=== PATIENT | female | born 1995 | race Caucasian/White ===

== ENCOUNTER 2018-10-05 19:02 | Emergency (ER) | payer MEDICAID ==
[~2018-10-05] VITALS: Ht 160 cm; Wt 67.3 kg
[2018-10-05 19:08] VITALS: Ht 160 cm; Wt 67.3 kg
[2018-10-05] MEDS ORDERED: PRENAVITE1 TAB (19:09)
[2018-10-05 20:19] LABS: APPEARANCE HAZY (CLEAR); COLOR YELLOW (YELLOW); NITRITE POSITIVE (NEGATIVE); SPECIFIC GRAVITY 1.025 (1.005-1.020)
[2018-10-05 20:20] LABS: BACTERIA MANY /hpf (NONE SEEN); BILIRUBIN NEGATIVE (NEGATIVE); CALCIUM OXALATE CRYSTALS 0-5 /hpf (NONE SEEN); GLUCOSE NEGATIVE (NEGATIVE); KETONE NEGATIVE (NEGATIVE); PROTEIN TRACE mg/dL (NEGATIVE); RED CELLS - URINE NONE SEEN /hpf (0-5); UROBILINOGEN NORMAL (NORMAL); WHITE CELLS - URINE >50 /hpf (0-5)
[2018-10-05] MEDS ORDERED: MACROBID100 MG PO (20:32)
[2018-10-05 20:48] VITALS: BP 115/71
== END 2018-10-05 20:49 | disposition home or self-care (01) ==
LOC: D.ER 19:02
PROVIDERS: Family Medicine
DX: O23.41 Unspecified infection of urinary tract in pregnancy, first trimester (principal); Z3A.13 13 weeks gestation of pregnancy; R10.30 Lower abdominal pain, unspecified

== ENCOUNTER → 2018-10-28 10:40 | Outpatient (CLI) | payer MEDICAID ==
[2018-10-05 19:08] VITALS: BMI 26.2
[~2018-10-28 10:40] MED LIST: MACROBID100 MG PO; PRENAVITE1 TAB
== END | disposition home or self-care (01) ==
LOC: D.US 10:40
DX: O26.842 Uterine size-date discrepancy, second trimester (principal); Z3A.15 15 weeks gestation of pregnancy

== ENCOUNTER → 2019-01-14 10:49 | Outpatient (CLI) | payer MEDICAID ==
[2018-10-05 19:08] VITALS: BMI 26.2
== END | disposition home or self-care (01) ==
LOC: D.US 10:49
PROVIDERS: ATTEND Obstetrics & Gynecology
DX: O36.63X3 Maternal care for excessive fetal growth, third trimester, fetus 3 (principal)

== ENCOUNTER → 2019-02-02 19:37 | Outpatient (CLI) | payer MEDICAID ==
[2018-10-05 19:08] VITALS: BMI 26.2
== END | disposition home or self-care (01) ==
LOC: D.LDO 19:37
PROVIDERS: ATTEND Obstetrics & Gynecology
DX: O26.899 Other specified pregnancy related conditions, unspecified trimester (principal); Z3A.00 Weeks of gestation of pregnancy not specified

== ENCOUNTER → 2019-03-11 15:11 | Outpatient (CLI) | payer MEDICAID ==
[~2019-03-11 15:11] MED LIST changes: +IBUPROFEN800 MG PO; +PERCOCET 7.5/321 TAB PO
== END | disposition home or self-care (01) ==
LOC: D.LDO 15:11
DX: O24.419 Gestational diabetes mellitus in pregnancy, unspecified control (principal); Z3A.36 36 weeks gestation of pregnancy

== ENCOUNTER → 2019-03-17 18:00 | Outpatient (CLI) | payer MEDICAID ==
[2018-10-05 19:08] VITALS: BMI 26.2
[~2019-03-17 18:00] MED LIST changes: -IBUPROFEN800 MG PO; -PERCOCET 7.5/321 TAB PO
[2019-03-17 18:36] LABS: APPEARANCE CLEAR (CLEAR); BILIRUBIN NEGATIVE (NEGATIVE); COLOR STRAW (YELLOW); GLUCOSE NEGATIVE (NEGATIVE); KETONE NEGATIVE (NEGATIVE); NITRITE POSITIVE (NEGATIVE); PROTEIN TRACE mg/dL (NEGATIVE); UROBILINOGEN NORMAL (NORMAL)
[2019-03-17 18:38] LABS: BACTERIA FEW /hpf (NONE SEEN); EPITHELIAL CELLS 0-5 /hpf (0-5); RED CELLS - URINE OCC /hpf (0-5); WHITE CELLS - URINE 0-5 /hpf (0-5)
== END | disposition home or self-care (01) ==
LOC: D.LDO 18:00
PROVIDERS: ATTEND Obstetrics & Gynecology
DX: O26.899 Other specified pregnancy related conditions, unspecified trimester (principal); Z3A.00 Weeks of gestation of pregnancy not specified

== ENCOUNTER → 2019-03-18 13:23 | Outpatient (CLI) | payer MEDICAID ==
[2018-10-05 19:08] VITALS: BMI 26.2
== END | disposition home or self-care (01) ==
LOC: D.LDO 13:23
PROVIDERS: ATTEND Obstetrics & Gynecology
DX: O24.419 Gestational diabetes mellitus in pregnancy, unspecified control (principal); Z3A.37 37 weeks gestation of pregnancy

== ENCOUNTER → 2019-03-25 15:25 | Outpatient (CLI) | payer MEDICAID ==
[2018-10-05 19:08] VITALS: BMI 26.2
[~2019-03-25 15:25] MED LIST changes: +IBUPROFEN800 MG PO; +PERCOCET 7.5/321 TAB PO
[2019-03-26 00:42] VITALS: BMI 31.9
== END | disposition home or self-care (01) ==
LOC: D.LDO 15:25
PROVIDERS: ATTEND Obstetrics & Gynecology
DX: O26.893 Other specified pregnancy related conditions, third trimester (principal); Z3A.38 38 weeks gestation of pregnancy

== ENCOUNTER 2019-03-26 00:14 | Inpatient (IN) | payer MEDICAID ==
[2019-03-26] VITALS (8 sets, daily range): BP systolic 120–131; BP diastolic 70–88; Ht 160 cm; Wt 81.6 kg
[~2019-03-26] VITALS: Ht 160 cm; Wt 81.6 kg
[~2019-03-26 00:14] MED LIST changes: -IBUPROFEN800 MG PO; -PERCOCET 7.5/321 TAB PO
[2019-03-26 01:02] LABS: HEMATOCRIT 32.5 % (36.0-48.0); MCH 30.1 pg (26.0-34.0); MCHC 33.8 g/dL (31.0-37.0); MCV 88.8 fL (80.0-100.0); MEAN PLATELET VOLUME 11.4 fL (7.4-10.4); RBC 3.66 10x6/uL (4.00-5.40); RDW 13.8 % (11.5-14.5); WBC 10.4 10x3/uL (4.8-10.8)
[2019-03-26 01:14] LABS: APPEARANCE CLEAR (CLEAR); BILIRUBIN NEGATIVE (NEGATIVE); COLOR STRAW (YELLOW); GLUCOSE 50 mg/dL (NEGATIVE); KETONE NEGATIVE (NEGATIVE); NITRITE NEGATIVE (NEGATIVE); PROTEIN NEGATIVE (NEGATIVE); SPECIFIC GRAVITY 1.005 (1.005-1.020); UROBILINOGEN NORMAL (NORMAL)
--- NOTE | 2019-03-26 11:34 | NUR ---
FUNDUS IS MIDLINE, FIRM AT THE UMBILICUS. CHINEDU PAD IN PLACE. NO CLOTS NOTED. DISCHARGE IS MINIMAL. WILL CONTINUE TO MONITOR.
--- NOTE | 2019-03-26 12:00 | NUR ---
REC'D PT BACK FROM [facility] . PT AA&O X 4. CURRENTLY DENIES PAIN OF ANY KIND. PT UNABLE TO MOVE LOWER EXTREMITIES AT THIS TIME. BREATHSOUNDS CL/=,BOWEL SOUNDS PRESENT X 4. FUNDUS FIRM,U/2, SCANT LOCHIA NOTED W/NO BLOOD CLOTS EXPRESSED W/MASSAGE. CLEAN PERIPAD PLACED. LAU CATH AT BEDISIDE DRAINING VIA GRAVITY. APPROX 200ML NOTED IN BAG.SCD WRAPS ON BILATERALLY. COLLECTED TO PUMP. PUMP TURNED ON AND FUNCTIONING. WRAPS REMOVED FOR LEG INSPECTION. WNL. NO EDEMA NOTED. POST OP VITALS BEGUN AT THIS TIME. PIV TO RT WRIST W/NS W/20 UNITS PITOCIN ALREADY CONNECTED. APPROX 500ML REMAINING. LINE PLACED ON PUMP TO INFUSE AT 125ML/HR. REPORT RECEIVED PT RECEIVED 2 LR IN SURGERY, BUT THIS IS THE FIRST BAG OF PITOCIN. CONTINUED POC DISCUSSED W/PT. PT VEBALZIES UNDERSTANDING AND AGREEABLE. ICE CHIPS AT PT'S SIDE, SHE HAS BEEN TOLERATING ICE CHIPS WELL. BED LOW, SIDE RAILS UP X 2. CALL LIGHT AT PT'S SIDE. FAMILY AT BEDSIDE.
--- NOTE | 2019-03-26 12:15 | NUR ---
TO BEDSIDE FOR FUNDAL CHECKS. PT AA&O X 4. STILL DENIES PAIN AT PRESENT. FUNDUS FIRM,U/2, MIDLINE. SCANT TO SMALL LOCHIA NOTED. NO PERIPAD CHANGE NEEDED. VITALS WNL. MULTIPLE FAMILY AT BEDSDIDE. PT DENIES NEEDS.
--- NOTE | 2019-03-26 12:30 | NUR ---
THIS RN TO BEDSIDE TO ADMINISTER TORADOL 30MG SIVP. PT AA&O X 4. REPORTS FEELS "STINGING" PAIN ON HER ABD. PT RATED USING FACE SCALE TO BE 2/10. MED TEACHING PROVIDED. FUNDUS FIRM,U/2, SCANT TO SMALL LOCHIA NOTED. NO CLOTS EXPRESSED W/MASSAGE. NO PERIPAD CHANGE. VITAL SIGNS OBTAINED. WNL. SEE FLOWSHEET. FAMILY REMAIN AT BEDSIDE. ADDITIONAL ICE CHIPS SERVED. BED LOW, SIDE RAILS UP X 2. CALL LIGHT AT PT'S SIDE.
--- NOTE | 2019-03-26 12:45 | NUR ---
fundus firm,u/2 and midline. small lochia noted. no blood clots expressed w/massage. peripad changed. pericare done. pt reports le's are still weak. denies needs at this time. family at bedside.
--- NOTE | 2019-03-26 13:00 | NUR ---
FUNDUS FIRM,U/2, SCANT TO SMALL LOCHIA NOTED. NO CLOTS EXPRESSED W/MASSAGE. PT REPORTS SHE IS STARTING TO HAVE FEELING RETURN AND SHE HAS SOME INCREASED PAIN. PAIN MEDICATION OFFERED FOR A PAIN SCORE 4/10. PT ACCEPTS. APPROX 150ML NOTED IN UROMTER AND DUMPED TO BAG. VITAL SIGNS WNL. SEE FLOWSHEET.
--- NOTE | 2019-03-26 13:15 | NUR ---
FUNDUS FIRM,U/2, MIDLINE. SCANT TO SMALL LOCHIA NOTED. NO PERIPAD CHANGE. 1ML DILAUDID SIVP ADMINISTERED FOR PT'S C/O PAIN 02/19. SEE EMAR. NO FURTHER NEEDS AT THIS TIME.
--- NOTE | 2019-03-26 14:00 | NUR ---
TO ROOM FOR REASSESSMENT OF PAIN. PT CURRENTLY RATES PAIN 0/10. FUNDUS FIRM, U/2. SMALL LOCHIA NOTED. PERIPAD CHANGED. VITALS WNL. PT DENIES NEEDS. CURRENTLY DOSING ON AND OFF.
--- NOTE | 2019-03-26 15:05 | NUR ---
THIS RN TO BEDSIDE FOR FUNDAL CHECK, PT AA&O X 4. RATES PAIN 2/10. DENIES NEEDING ADDITIONAL, PAIN INTERVENTIONS AT THIS TIME. VITAL SIGNS OBTAINED. WNL. SEE FLOWSHEET. FUNDUS FIRM ,U/2, MIDLINE. SMALL RUBRA LOCHIA NOTED TO PERIPAD W/1 QUARTER SIZE CLOT NOTED ON PAD. NO CLOTS EXPRESSED W/MASSAGE. PT T/C/D. I.S. TEACHING PROVIDED AND PT PERFORMED. ABLE TO PULL 1000ML. ENCOURAGMENT AND ADDITIONAL TEACHING PROVIDED. NO COUGH PRODUCED. TEACHING PROVIDED. PERICARE DONE W/CLEAN PERIPAD PLACED. CHUX CHANGED. FRESH ICE CAP TO ABD. APPROX 45ML NOTED IN UROMETER. [facility] FILLED W/ICE WATER AND SERVED W/INSTRUCTIONS TO INCREASE PO FLUID. PT VERBALIZES UNDERSTANDING AND AGREEBLE. SCD WRAPS REMAIN IN PLACE BILATERALLY. REMAIN CONNECTED TO PUMP AND PUMP IS ON AND FUNCTIONING. BED LOW, SIDE RAILS UPX 2. CALL LIGHT AT PT'S SIDE. SIG OTHER AT BEDSIDE
--- NOTE | 2019-03-26 16:00 | NUR ---
ROUNDS MADE. PT LYING IN LOW DACOSTA'S AA&O X4. PAIN AND NEEDS ASSESSED. PT RATES PAIN 2/10. DENIES NEEDS. PT HAS DRANK ALL OF THE WATER SERVED. [facility] MUG REFILLED AND SERVED. BED LOW, SIDE RAILS UP X2. CALL LIGHT AT PT'S SIDE.
--- NOTE | 2019-03-26 16:29 | NUR ---
PT IS SITTING UP IN THE BED, HOLDING AND FEEDING BABY. FOB ALSO AT BEDSIDE. PT DENIES PAIN AT THIS TIME. DENIES ALL OTHER NEEDS. SRUP X2, CALL LIGHT AND PHONE WITHN REACH.
--- NOTE | 2019-03-26 17:00 | NUR ---
this rn to bedside for rounding. pt lying awake in bed w/infant up in arms. pain and needs assessed. pt reports pain 5/10. pain medication offered. pt accepts. 2mg dilaudid given sivp. pericare done. small lochia noted. to peripad. clean pad placed.
--- NOTE | 2019-03-26 18:08 | NUR ---
THIS RN TO BEDSIDE FOR ROUNDING AND PAIN REASSESSMENT. PT RATES PAIN 2/10. DENIES NEEDING FURTHER PAIN INTERVENTIONS AT THIS TIME. APPROX 65ML URINE NOTED IN UROMETER. TOTAL OF 400ML EMPTIED FROM LAU BAG. SMALL LOCHIA NOTED. PAD NOT CHANGED AT THIS TIME. PT ABLE TO DOZE ON AND OFF. SIG OTHER AT BEDSIDE FOR SUPPORT. IN OPEN CRIB AT [facility].
--- NOTE | 2019-03-26 19:25 | NUR ---
PT. AWAKE AND ORIENTED. SITTING UP IN BED WITH HOB AT 45 DEGREES. RATES PAIN A 2 OF 10 ON PAIN SCALE. ABD. INCISION WITHOUT REDNESS NOR DRAINAGE. NO DRESSING NOTED OVER INCISION. LOCHIA RUBRA SCANT. BREATH SOUNDS CLEAR AND BOWEL SOUNDS AUDIBLE. SCDS ON AND FUNCTIONAL. 60CC URINE NOTED IN METER. IV IN RT. HAND WITHOUT REDNESS NOR EDEMA.
--- NOTE | 2019-03-26 19:30 | NUR ---
ICE CAP REFILLED AND POSITIONED TO INCISIONAL AREA. POSITIONED FROM BACK TO LT SIDE AND SUPPORTED WITH PILLOWS. PT. DENIES ANY NEEDS. POC EXPLAINED TO PT.
--- NOTE | 2019-03-26 20:24 | NUR ---
REPORT GIVEN TO Humberto NATH RN AND CARE OF PT. TRANSFERRED TO SAME NURSE.
--- NOTE | 2019-03-26 20:55 | NUR ---
DR LIVINGSTON AT PTS BEDSIDE.
--- NOTE | 2019-03-26 22:18 | NUR ---
PATIENT REPOSITIONED TO LEFT TILT AND HEAD OF BED ELEVATED PER PT REQUEST. PAIN MEDICATION ADMINISTERED SEE EMAR
--- NOTE | 2019-03-26 23:30 | NUR ---
PATIENTS LAU CATHETER REMOVED WITHOUT INCIDENT, 350 ML CLEAR YELLOW URINE NOTED IN CHAMBER. IV SALINE LOCKED AND TAPE REINFORCED. PT REPOSITIONED FOR COMFORT AND PILLOW PLACED BEHIND HER SHOULDERS. DENIES OTHER NEEDS, WILL CONTINUE TO MONITOR.
--- NOTE | 2019-03-27 00:34 | NUR ---
SANDWICH TRAY AND PUDDING PROVIDED, PAIN MEDICATION ADMINISTERED, SEE EMAR. NO FURTHER NEEDS IDENTIFIED, WILL CONTINUE TO MONITOR.
--- NOTE | 2019-03-27 02:30 | NUR ---
BLEEDING NOTED TO BE SMALL, RUBRA WITH NO CLOTS NOTED
--- NOTE | 2019-03-27 02:30 | NUR ---
PT ASSISTED UP TO BATHROOM WITH STEADY GAIT, VOIDED WITHOUT DIFFICULTY, CLEAN PAD AND PANTIES PLACED AND PT BACK TO BED. BED REMAINS LOW IN LOCKED POSITION, SIDE RAILS UPX2, CALL GARCIA AND TRAY TABLE IN REACH. WILL CONTINUE TO MONITOR.
--- NOTE | 2019-03-27 05:29 | NUR ---
PATIENT REPOSITIONED FOR COMFORT, PAIN MEDICATION ADMINISTERED AT THIS TIME, SEE EMAR. NO FURTHER NEEDS IDENTIFIED. WILL CONTINUE TO MONITOR.
[2019-03-27 06:52] LABS: BASOPHILS 0.1 % (0-2); EOSINOPHILS 0.5 % (0-7); HEMATOCRIT 27.2 % (36.0-48.0); HEMOGLOBIN 9.2 g/dL (12-16); IMMATURE GRANULOCYTES 0.3 % (0-5); LYMPHOCYTES 15.6 % (15-50); MCH 30.3 pg (26.0-34.0); MCHC 33.8 g/dL (31.0-37.0); MCV 89.5 fL (80.0-100.0); MEAN PLATELET VOLUME 11.1 fL (7.4-10.4); MONOCYTES 8.3 % (2-11); NEUTROPHILS 75.2 % (40-80); PLATELET COUNT 202 10x3/uL (130-400); RBC 3.04 10x6/uL (4.00-5.40); WBC 12.4 10x3/uL (4.8-10.8)
[2019-03-27 07:24] LABS: RAPID PLASMA REAGIN Non Reactive (Non Reactive)
[2019-03-27 07:58] VITALS: BP 112/60
--- NOTE | 2019-03-27 07:58 | NUR ---
THIS RN TO ROOM FOR SHIFT ASSESSMENT. PT LYING IN BED, SUPINE. PT ALERTS THIS RN ENTERS ROOM. PT C/O PAIN AT INCISION AND NECK. PT HAS REMOVED PILLOW FROM BEHIND NECK FOR COMFORT, STATES IT FEELS BETTER THAT WAY. SHIFT ASSESSMENT COMPLETED, VSS, SEE FLOWSHEET FOR DOC. RIGHT HAND PIV SALINE LOCKED. FF, ML, U/1. SMALL RUBRA LOCHIA, NO CLOTS. PT STATES SHE JUST GOT UP TO BR TO VOID. 350ML URINE MIXED WITH SMALL RUBRA LOCHIA NOTED IN URINE HAT. ABD INCISION IS C/D WITH DERMABOND INTACT. NO BLEEDING OR DRAINAGE. MILD GENERALIZED EDEMA TO LE BILAT, NON-PITTING. POC DISCUSSED WITH PT. PT WANTING MOTRIN FOR NECK PAIN. NRSY RN TO ROOM AT THIS TIME. WILL RETURN.
--- NOTE | 2019-03-27 08:06 | OP ---
PATIENT NAME: KYLE YING MEDICAL RECORD: [id number] :89 LOCATION:[facility] [id number] ADMISSION DATE:03/26/19 SURGEON: CHRISTOPHER NY MD DATE OF OPERATION: 03/26/2019 PREOPERATIVE DIAGNOSES: 1. High-risk at 38 weeks gestation. 2. Gestational diabetes mellitus A2. 3. Undesired fertility. POSTOPERATIVE DIAGNOSES: 1. High-risk at 38 weeks gestation. 2. Gestational diabetes mellitus A2. 3. Undesired fertility. PROCEDURE: 1. Repeat low transverse section. 2. Bilateral tubal ligation using a Green technique. SURGEON: Christopher Ny MD ASSISTANT PROFESSOR OF EDUCATION: Jan Heath. ANESTHESIA: Spinal. FINDINGS: Unremarkable uterus, tubes, and ovaries. Viable male infant, vertex presentation, Apgars 9 and 9, weight 6 pounds 2 ounces. SPECIMEN REMOVED: 1. Placenta. 2. Tubes. SPECIMEN DISPOSITION: 1. Discarded. 2. To pathology. ESTIMATED BLOOD LOSS: 750 cc. FLUIDS: 1800 cc lactated Ringer's. URINE OUTPUT: 60 cc of clear urine. COMPLICATIONS: None. DRAINS: Mccoy to gravity. INDICATIONS: The patient is a 24-year-old multiparous female with unwanted fertility. The patient has had 2 prior sections and is at 38 weeks and 5 days. The patient has diabetes, complicating her . The patient has been given informed consent and understands risks, benefits and limitations to this procedure. The patient also understands the possibility of failure of tubal ligation. DESCRIPTION OF PROCEDURE: After informed consent was assured, the patient was taken to the operating room where anesthetic was obtained. The patient was OPERATIVE REPORT [id number] KYLE YING prepped and draped in usual sterile fashion. The incision was now made over the old scar and carried down to the underlying layer of the fascia. The fascia was opened in the midline and extended laterally. Rectus bellies were dissected free, superiorly and inferiorly. Rectus bellies were now in the midline. The peritoneum was taken down with Metzenbaum scissors until the bladder was fully visualized. DeLee all-purpose retractor was now inserted and bladder flap developed. This bladder blade was now reinserted into the vesicouterine pouch and a low transverse hysterotomy was performed. was delivered onto the abdomen atraumatically. The cord was doubly clamped and cut and the was passed to the attendant. Placenta was delivered via Crede maneuver after cord blood sample was obtained. Uterus was now exteriorized and cleared of all clot and debris. The uterine hysterotomy was closed in a running locked fashion with a chromic stitch. After this had been completed, attention was directed to the right tube where a window into the mesosalpinx was selected and Bovie cautery was used to make an opening. Two plain gut ligatures were passed through here tied proximally and distally. The intervening segment of tube was now excised with Metzenbaum scissors and the ostia cauterized. This was repeated on the contralateral side. Again, a window was developed and 2 ligatures passed through this opening. They again were secured proximally and distally and the segment of tube removed with Metzenbaum scissors. Ostia was cauterized. Uterus was now returned to the abdomen and both left and right tubal stumps inspected and found to be hemostatic. The pericolic gutters now irrigated and irrigant removed. Gross inspection of the hysterotomy revealed adequate hemostasis. The rectus bellies were reapproximated with a loose interrupted stitch in the midline. The fascia was closed with looped PDS in a running fashion. Subcutaneous tissue was irrigated. Bleeding vessels cauterized, and the skin was reapproximated with subcuticular stitch. Dermabond was applied. Sponge, lap, and needle counts correct times 2. TRANSINT:[id number] Voice Confirmation ID: [id number] DOCUMENT ID: [id number] CHRISTOPHER NY MD at 0806 CC: [id number] DICTATION DATE: 03/26/19 1121 EEG TECH: 03/26/19 1259 ADM IN [facility] [address] [place] [address]
--- NOTE | 2019-03-27 08:13 | NUR ---
DIET ADVANCED TO REGULAR DIET PER ACTIVE BS AND PT DENIES NAUSEA. FANS DELIVERS REGULAR BREAKFAST TRAY TO PT.
--- NOTE | 2019-03-27 08:14 | NUR ---
PT ADMIN PRN MOTRIN FOR PAIN, SEE EMAR FOR DOC. PT PROVIDED WITH FRESH ICE WATER. PT DENIES FURTHER NEEDS AT THIS TIME. SRUx2, CL IN REACH.
--- NOTE | 2019-03-27 09:20 | NUR ---
THIS RN TO ROOM FOR PT CHECK. PT SITTING UP IN BED, REPORTS PAIN IS BETTER, RATES IS 3/10. PT UP TO BR AT THIS TIME. DENIES NEED FOR ASSIST. SPOUSE AT BEDSIDE.
[2019-03-27 10:57] VITALS: BP 135/85
--- NOTE | 2019-03-27 10:57 | NUR ---
THIS RN TO ROOM FOR PT CHECK. PT C/O PAIN IN HER NECK RATED 4/10, STATES IT IS GETTING WORSE AGAIN. PT REQUESTING SAME PAIN MEDICATION SHE HAD EARLY THIS AM. PT ADMIN PRN PAIN MED ORDERED, SEE EMAR FOR DOC. VSS, SEE FLOWSHEET. NEW ICE PACK GIVEN PER PT REQUEST. PT DENIES ANY OTHER NEEDS AT THIS TIME, SITTING UP IN BED VISITING WITH FAMILY. SRUx2, CL IN REACH. WILL CONT TO MONITOR.
--- NOTE | 2019-03-27 12:00 | NUR ---
THIS RN TO ROOM FOR PT CHECK. PT STATES PAIN IS BETTER, RATED 3/10. PT STATES SHE IS GETTING OUT OF BED TO SEE IF IT WILL HELP HER NECK PAIN. PT ENCOURAGED. PT DENIES NEEDS AT THIS TIME, VISITING WITH FAMILY IN ROOM. WILL CONT TO MONITOR.
--- NOTE | 2019-03-27 13:25 | NUR ---
DR NY TO ROOM FOR ROUNDING, DISCUSSING POC WITH PT.
--- NOTE | 2019-03-27 14:05 | NUR ---
PT CALLS OUT MANAGER CREATIVE SERVICES LIGHT FOR NURSE. RN TO ROOM. PT STATES SHE IS HAVING NECK PAIN RATED 6-7/10, STATES IT HAS BEEN HURTING SINCE BEFORE DELIVERY. PT STATES OTHER PAIN MEDS HAVE NOT COMPLETELY RELIEVED THE NECK PAIN. WILL NOTIFY
--- NOTE | 2019-03-27 14:38 | NUR ---
DR NY PHONED WITH REPORT OF PT C/O NECK PAIN SINCE BEFORE DELIVERY THAT IS NOT COMPLETELY RELIEVED WITH ORDERED MEDS. ORDER RCVD FOR 10MG FLEXERIL PO x1 NOW.
--- NOTE | 2019-03-27 15:05 | NUR ---
PT ADMIN FLEXERIL ORDERED, SEE EMAR FOR DOC. PT PROVIDED WITH FRESH ICE WATER. PT DENIES FURTHER NEEDS AT THIS TIME. PT LYING IN BED, SUPINE, VISITING WITH FAMILY. SRUx2, CL IN REACH. WILL CONT TO MONITOR.
--- NOTE | 2019-03-27 15:05 | MORECARE ---
CASE MANAGEMENT DISCHARGE SUMMARY PATIENT: KYLE YING UNIT: [id number] ADM DATE: 03/26/19 AGE: 24 : [birth year] SEX: F ROOM/BED: D.1274 AUTHOR: FRANCI PALOMO PHYSICIAN: REFERRING PHYSICIAN: CHRISTOPHER NY MD DATE OF SERVICE: 03/27/19 Discharge Plan Patient Name: KYLE YING Facility: [facility]:[place] : 1995 Planned Disposition: Home Anticipated Discharge Date: 03/28/19 Discharge Date: Expected LOS: 2 Initial Reviewer: [email or web address] Initial Review Date: 03/27/2019 Generated: 03/27/19 4:05 pm Comments DCP- Discharge Planning Updated by [email or web address]: Kerri Marcelo on 03/27/19 2:[address] Patient Name: KYLE YING Admission Status: Elective Accout number: [id number] Admission Date: 03-26-2019 : 1995 Admission Diagnosis: Attending: Christopher Ny Current LOS: 1 Anticipated DC Date: Planned Disposition: Primary Insurance: MEDICAID [place] Discharge Planning Comments: DC PLAN: Home w/MOB, FOB AND FRATERNAL GRANDMOTHER. MOB is KYLE YING, address [address] [address]. Phone number [phone]. DC NEEDS: None TRANSPORTATION: FOB'S MOTHER. [facility]. MEDICAID: Has not been set up yet. CAR SEAT: Yes FEEDING PLAN: Plans to formula feed. [facility] states will use nursery water with formula. BABY NAME: ORTEGA YING FOB: PLANS TO PROVIDE FOR FAMILY. MOB: Plans to work when baby gets older, she will care for him. States FOB will help and her inlaws are helping care for him. BATCH ROLLER OPERATOR: none yet. CARE: MOB states care during entire pregnancyl SUPPLIES: [facility] states has diapers, bottles, crib, car seat and clothes. WATER SOURCE: city HEAT SOURCE: electric AIR CONDITIONING: yes, central air. met with MOB regarding dc planning/needs. MOB, baby and fob are going to stay with Nicolette Bourneer (franternal grandmother). [facility] home environment is safe and plenty of family to help her with the baby. She states in addition to herself, four other people live in the home. MOB, FOB, FOB's mom and dad. Mother in law Nicolette Ying will help with the infant and provide transportation to appointments. They will also transport MOB and baby to appointments. MOB states this is her third child. has 2 other children from a previous relationship and they live with their dad and his parents. Denies smokers, drug users, or etoh use in the home. has several dogs and cats but will not leave baby unattended with pest. MOB declined information on parenting classes and breast feeding information. Denies any discharge needs at this time. CM will call Romel Diggs regarding Medicaid for baby. CM will continue to follow and assist as needed with dc planning/needs. Rink Rat: Kerri Marcelo Patient Name: KYLE YING Page [id number] at 1505 All edits/amendments must be made on the electronic document DICTATION DATE: 03/27/191503 CUSTOMER RESOURCE SPECIALIST: ZONIA 03/27/19 150 RPT#: [id number] DC DATE: STATUS: ADM IN [facility] [address] [place] [address] END OF REPORT
--- NOTE | 2019-03-27 16:31 | NUR ---
THIS RN TO ROOM FOR PT CHECK AND PAIN REASSESS. PT SUPINE IN BED, RESTING WITH EYES CLOSED. RESP EVEN AND UNLABORED. PT LEFT UNDISTURBED. SRUx2, CL IN REACH. SIG OTHER RESTING ON BEDSIDE COUCH.
--- NOTE | 2019-03-27 18:06 | NUR ---
PT CALLS OUT CHIEF PROGRAM OFFICER LIGHT REQUESTING PAIN MEDICATION. THIS RN TO ROOM. PT STATES FLEXERIL HELPED HER NECK BUT NOW HER HEAD IS HURTING TERRIBLY. PT RATES PAIN 9-10/10. PT QUESTIONED REGARDING IF HEADACHE IS WORSE STANDING UP OR LYING DOWN. PT STATES IT "HURTS BAD EITHER WAY." PT STATES "I JUST WOKE UP LAYING IN BED AND MY HEAD WAS HURTING SO BAD." PT ADMIN PRN PAIN MEDS ORDERED, SEE EMAR FOR DOC. PT DENIES NAUSEA. PT ENCOURAGED TO EAT SOME OF DINNER TRAY IF SHE CAN TOLERATE IT. PT AGREES SHE WILL EAT. PT PROVIDED WITH FRESH ICE WATER. PT DENIES FURTHER NEEDS AT THIS TIME. SRUx2, CL IN REACH. WILL CONT TO MONITOR.
--- NOTE | 2019-03-27 19:09 | NUR ---
BEDSIDE REPORT REC'D FROM JENNIFER RN. PT IN SEMIFOWLERS RESTING WITH EYES CLOSED, OCCASIONAL SNORING AUBILE. RESPIRATIONS REGULAR AND UNLABORED WITH NOT S/S OF DISTRESS NOTED. BED IN LOW POSITION WITH UPPER SIDE RAILS RAISED X2. CALL LIGHT AND PHONE WITHIN REACH. INFANT RESTING IN OPEN CRIB AT BEDSIDE, SIGNIFICANT OTHER AT BEDSIDE.
[2019-03-27 20:25] VITALS: BP 102/68
--- NOTE | 2019-03-27 20:25 | NUR ---
SHIFT ASSESSMENT COMPLETED PER FLOWSHEET. VSS. PAIN 11/21, DENIES NEEDS FOR INTERVENTION. FUNDUS FIRM MIDLINE AND U2 WITH SMALL AMT RUBRA LOCHIA, NO CLOTS PRESENT. PT REPORTS THAT SHE IS PASSING FLATUS AND VOIDING WITHOUT DIFFICULTY. STATES THAT SHE HAS NOT SHOWERED TODAY, OFFERED TO ASSIST TO SHOWER AND REFUSES, STATES THAT SHE "MAY DO IT LATER." INSTRUCTED TO NOTIFY RN PRIOR TO DO SO, VERBALIZES UNDERSTANDING. EDUCATED ON PAIN MEDICATION, AND ASKING FOR IT NEEDED THAT IT IS NOT SCHEDULED, VERBALIZES UNDERSTANDING. EDUCATED ON S/S OF INFECTION TO REPORT TO MD, VERBALIZES UNDERSTANDING. EDUCATED ON INCISIONAL CARE AND KEEPING INCISION CLEAN AND DRY. PERIPAD PLACED ON INCISION AND EDUCATED TO KEEP IT COVERED, VERBALIZES UNDERSTANDING. DENIES QUESTIONS, DISCUSSED PLAN OF CARE. BED IN LOW POSITION WITH UPPER SIDE RIALS RAISED X2. CALL LIGHT AND PHONE WITHIN REACH. WILL CONTINUE TO MONITOR AND ASSIST PRN.
--- NOTE | 2019-03-27 21:58 | NUR ---
PATIENT RESTING QUIETLY WITH EYES CLOSED, EASILY AROUSED TO VERBAL, DENIES NEEDS AT THIS TIME. SIGNIFICANT OTHER REMAINS AT BEDSIDE FOR SUPPORT. BED REMAINS LOCKED IN LOW POSITION, SIDE RAILS UPX2, CALL GARCIA AND TRAY TABLE IN REACH. WILL CONTINUE TO MONITOR
--- NOTE | 2019-03-27 23:56 | NUR ---
C/O PAIN 6-/, ABD SORENESS AND "SOME CRAMPING" WITH CONSTANT NECK AND HEAD ACHE. REQUEST MOTRIN AND PERCOCET BE TAKEN TOGETHER, STATES THAT REALLY HELPED HER PAIN EARILER WHEN SHE TOOK THEM TOGETHER. B/P ELEVATED 155/89, PT DENIES HAVING HTN OR B/P ISSUES PREVIOUSLY. STATES THAT HEAD AND NECK ACHE COMPLETELY RESOLUED AFTER RECEIVING MOTRIN AND PERCOCET AT 1806, BUT IT HAS RETURNED. DENIES NAUSEA, VOMITING, VISION CHANGES, AND EPIGASTRIC PAIN. REPORTS INCREASE IN HEAD AND NECK PAIN WHEN GETTING UP AND AMBULATING IN ROOM, DENIES CHANGE IN HEAD AND NECK PAIN WHEN LAYING DOWN AND RESTING. ENCOURAGED PT TO LAY DOWN AND REST, COKE PROVIDED AND ENCOURAGED HER DRINK IT. WILL RECHECK V/S IN 30 MINUTES. SIGNIFICANT OTHER WILL FEED THIS FEEDING. ICE WATER PROVIDED. DENIES ADDITIONAL NEEDS. BED IN LOW POSITION WITH UPPER SIDE RAILS RAISED X2. CALL LIGHT AND PHONE WITHIN REACH. WILL CONTINUE TO MONITOR AND ASSIST PRN.
[2019-03-27 23:58] VITALS: BP 155/89
[2019-03-28 00:42] VITALS: BP 131/69
--- NOTE | 2019-03-28 00:42 | NUR ---
PAIN REASSESSMENT COMPLETED, 01/19, HEAD AND NECK ACHE, REPORTS NO ABD/INCISIONAL AFTER RECEIVING PAIN MEDICATION. B/P 131/69 AT THIS TIME. DRANK APPROXIMATELY HALF OF COKE. INSTRUCTED TO NOTIFY RN IF PAIN IN HEAD AND NECK INCREASES WHEN SHE SITS UP OR GETS OOB, VERBALIZES UNDERSTANDING. HOB ELEVATED AT 30 DEGREES. WILL CONTINUE TO MONITOR AND ASSIST PRN. SIGNIFICANT OTHER REMAINS AT BEDSIDE, SUPPORTIVE AND ATTENTIVE TO PT AND NEEDS. UPPER SIDE RAILS RAISED X2. CALL LIGHT AND PHONE WITHIN REACH. WILL CONTINUE TO MONITOR AND ASSIST PRN.
--- NOTE | 2019-03-28 01:13 | NUR ---
ROUNDS MADE. PT REMAINS IN SEMI FOWLERS POSITION RESTING WITH EYES CLOSED. RESPIRATIONS REGULAR AND UNLABORED, NO S/S OF DISTRESS NOTED. BED IN LOW POSITION WITH UPPER SIDE RIALS RAISED X2. CALL LIGHT AND PHONE WITHIN REACH. WILL CONTINUE TO MONITOR AND ASSIST PRN.
[2019-03-28 04:33] VITALS: BP 120/70
--- NOTE | 2019-03-28 04:33 | NUR ---
VSS. FUNDUS REMAINS FIRM, MIDLINE AND U2, SCANT RUBRA LOCHIA, NO CLOTS. C/O PAIN 5/10, CONSTANT HEADACHE, REPORTS THAT HEADACHE WORSENED WHEN SHE GOT UP TO VOID. STATES THAT WHILE AT REST, 1-2/10 BUT SOON GETTING UP PAIN INCREASED TO 4-5/10. PERCOCET TAB GIVEN PER ORDER AND PT REQUEST. COKE PROVIDED PER PT REQUEST. DENIES ADDITIONAL NEEDS. SIGNIFICANT RESTING QUEITLY AT BEDSIDE. BED IN LOW POSITION WITH UPPER SIDE RAILS RAISED X2. CALL LIGHT AND PHONE WITHIN REACH. WILL CONTINUE TO MONITOR AND ASSIST PRN.
--- NOTE | 2019-03-28 05:06 | NUR ---
DR. NY CALLS UNIT. REPORT GIVEN REGARDING PT C/O CONSTANT HEADACHE THAT INCREASES IN INTENSITY WITH ACTIVITY. REPORT GIVEN ON B/P AT 2356 AND RECHECK B/P DONE. ORDERS REC'D.
--- NOTE | 2019-03-28 05:13 | NUR ---
NICOL NOT AVAILABLE FOR OVERRIDE IN [facility]. GLOBAL FIND DONE, MED AVAILABLE IN PCU, CVICU, ER, AND REHAB. RADHA TINEOBOOKKEEPING ASSISTANT NOTIFIED OF NEED FOR MED AND LOCATIONS PER GLOBAL FIND AND WILL BRING MED TO UNIT.
--- NOTE | 2019-03-28 05:16 | NUR ---
RESTING WITH EYES CLOSED IN SEMI-FOWLERS POSITION. RESPIRATION REGULAR AND UNLABORED, NO S/S OF DISTRESS NOTED. BED IN LOW POSITION WITH UPPER SIDE RAILS RAISED X2. CALL LIGHT AND PHONE WITHIN REACH. WILL CONTINUE TO MONITOR AND ASSIST PRN.
--- NOTE | 2019-03-28 05:39 | NUR ---
ADMINISTERED FIORICET TWO TABS PO PER MD ORDERS AT THIS TIME WITH COKE. PT ENCOURAGED TO CONTINUE TO REST AND LIGHTS TURNED OFF. NO FURTHER NEEDS IDENTIFIED. WILL CONTINUE TO MONITOR
--- NOTE | 2019-03-28 06:29 | NUR ---
SITTING IN HIGH FOWLERS POSITION. C/O HEADACHE 12/22, REPORTS THAT SHE JUST SAT UP IN BED AND PAIN WAS INCREASING. MOTRIN GIVEN PER PT REQUEST. DENIES ADDITIONAL NEEDS. BED IN LOW POSITION WITH UPPER SIDE RAILS RAISED X2. CALL LIGHT AND PHONE WITHIN REACH.
--- NOTE | 2019-03-28 06:45 | NUR ---
SPOKE WITH Madeline CORADO CRNA REGARDING NEED FOR EVAL FOR SPINAL HEADACHE. PER Madeline CORADO CRNA PAGE DR. DELTAORRE. DR. DELATORRE PAGED AT [phone]. AWAITING CALLBACK AT THIS TIME.
--- NOTE | 2019-03-28 07:25 | NUR ---
REPORT GIVEN TO Mario MCLAIN RN.
--- NOTE | 2019-03-28 07:30 | NUR ---
NO CALL BACK REC'D. OR LIANET CALLED, SPOKE WITH DR. DELATORRE REGARDING PT C/O HEADACHE AND DR. NY REQUEST FOR ANESTHESIA TO EVAL FOR SPINAL HEADACHE. PER DR. NY HE WILL COME TO UNIT TO EVAL.
--- NOTE | 2019-03-28 07:42 | NUR ---
DR. DELATORRE ON UNIT TO [facility]AYDEN LANDRUM.
[2019-03-28 08:05] VITALS: BP 120/71
--- NOTE | 2019-03-28 08:05 | NUR ---
SHIFT ASSESSMENT COMPLETED. PATIENT INITIALLY SAID 0/10 HEADACH PAIN WHEN BEDSIDE REPORT WAS RECIEVED. NOW C/O 4/10 FRONTAL HEADACHE THAT GOT WORSE WHEN SITTING STRAIGHT UP WHILE GETTING OOB. AFTER STANDING UP GRIMACING NOTED, PT HOLDING FRONT AND SIDE OF HEAD AND SAYS PAIN 5/10. RETURNED TO BED. WILL CONTACT ANESTHESIA. DR DELATORRE VISITED PT AT APPROX 0730. FOB IN ROOM, IN CRIB.
--- NOTE | 2019-03-28 08:18 | NUR ---
DR COOK'S PAGED.
--- NOTE | 2019-03-28 08:50 | NUR ---
DR COOK'S HAS NOTE RETURNED CALL, WENT TO ROOM TO CHECK PATIENT BEFORE PAGING HIM AGAIN. UP IN BATHROOM VOIDING AND PREPARING TO TAKE A SHOWER. SAYS HER RODARTE IS A LITTLE BETTER STATES "IT'S BEEN DOING THIS, SOMETIMES IT GETS BETTER AND SOMETIMES IT STARTS IN NECK AND MOVES UP TO HEAD. IT'S NOT IN MY NECK RIGHT NOW, ONLY IN THE FRONT" 4/10 DESIRES TO TAKE A SHOWER AT THIS TIME. IF RODARTE RETURNS OR WORSEN, WILL CALL ANESTHESIA AGAIN.
--- NOTE | 2019-03-28 10:15 | NUR ---
AMBULATING IN ROOM STATES "I FEEL REALLY GOOD. THAT SHOWER HELPED A LOT. I DON'T FEEL NO PAIN, NO HERE (HEAD) OR HERE (LOW ABDOMEN)." INFANT IN ROOM IN CRIB, VISITOR X 1. ANTICIPATE DC HOME TODAY. O+ RUBELLA IMMUNE, NEG GBS, NON SMOKER, SAYS SHE RECEIVED THE WHOOPING COUGH (TDAP) VACCINE DURING "AT 28 WEEKS". NO PRESENT REQUESTS.
--- NOTE | 2019-03-28 12:38 | NUR ---
AMBULATING IN ROOM HOLDING INFANT. DENIES PAIN OR NEEDING ANYTHING AT THIS TIME. SAYS THE MOLD HOISTER VISITED AND BABY CAN GO HOME WHEN SHE GOES HOME. FOB IN ROOM. WAITING ON LUNCH. DR NY ON L&D AND WILL DC SCOTT.
--- NOTE | 2019-03-28 14:34 | NUR ---
AMBULATING IN ROOM. DENIES PAIN OR NEEDING ANYTHING. READY TO GO HOME. WAITING ON OB MD TO ROUND. ANTICIPATE DC. FOB AND VISITORS IN ROOM WITH INFANT. TO CALL IF ANYTHING IS NEEDED.
[2019-03-28] MEDS ORDERED: IBUPROFEN800 MG PO (16:14)
[2019-03-28] MEDS ORDERED: PERCOCET 7.5/321 TAB PO (16:15)
--- NOTE | 2019-03-28 16:26 | NUR ---
DR NY VISITED EARLIER, DC ORDERS RECEIVED. SALINE LOCK WAS DC'D WITH TIP INTACT. DC'D HOME WITH FAMILY AFTER PROVIDING VERBAL AND WRITTEN INSTRUCTIONS ON POST OP C/S, PP DEPRESSION, S&S INFECTION, BREASTCARE, BOTTLEFEEDING, MEDICATION ADMINISTRATION AND DANGER SIGNS. QUESTIONS ANSWERED. PRESCRIPTIONS GIVEN TO PATIENT. INFANT IN CARSEAT. DESIRES TO AMBULATE TO FRONT DOOR. FAMILY ASSISTING. ALL BELONGINGS REMOVED FROM ROOM. HAS F/U APPOINTMENT SCHEDULED FOR 11 APRIL. IF DESIRES CHANGED IN TIME TO CONTACT CLINIC ON SUNDAY TO RESCHEDULE. VERBALIZED UNDERSTANDING OF ALL INSTRUCTIONS ABOVE.
--- NOTE | 2019-03-31 07:35 | MORECARE ---
CASE MANAGEMENT DISCHARGE SUMMARY PATIENT: KYLE YING UNIT: [id number] ADM DATE: 03/26/19 AGE: 24 : [birth year] SEX: F ROOM/BED: D.1274 AUTHOR: FRANCI PALOMO PHYSICIAN: REFERRING PHYSICIAN: CHRISTOPHER NY MD DATE OF SERVICE: 03/31/19 Discharge Plan Patient Name: KYLE YING Facility[facility]:[place] : 1995 Planned Disposition: Home Anticipated Discharge Date: 03/28/19 Discharge Date: 03/28/2019 Expected LOS: 2 Initial Reviewer: [email or web address] Initial Review Date: 03/27/2019 Generated: 03/31/19 8:35 am Comments DCP- Discharge Planning Updated by [email or web address]: Kerri Marcelo on 03/27/19 2:[address] Patient Name: KYLE YING Admission Status: Elective Accout number: [id number] Admission Date: 03-26-2019 : 1995 Admission Diagnosis: Attending: Christopher Ny Current LOS: 1 Anticipated DC Date: Planned Disposition: Primary Insurance: MEDICAID [id number] Discharge Planning Comments: DC PLAN: Home w/MOB, FOB AND FRATERNAL GRANDMOTHER. MOB is KYLE YING, address [address] [address]. Phone number [phone]. DC NEEDS: None TRANSPORTATION: FOB'S MOTHER. WIC: [facility] WILL MAKE AN APPOINTMENT. MEDICAID: Has not been set up yet. CAR SEAT: Yes FEEDING PLAN: Plans to formula feed. [facility] states will use nursery water with formula. BABY NAME: ORTEGA YING FOB: PLANS TO PROVIDE FOR FAMILY. MOB: Plans to work when baby gets older, she will care for him. States FOB will help and her inlaws are helping care for him. LIQUEFACTION PLANT OPERATOR: none yet. CARE: MOB states care during entire pregnancyl SUPPLIES: [facility] states has diapers, bottles, crib, car seat and clothes. WATER SOURCE: city HEAT SOURCE: electric AIR CONDITIONING: yes, central air. met with MOB regarding dc planning/needs. MOB, baby and fob are going to stay with Nicolette Bourneer (franternal grandmother). [facility] home environment is safe and plenty of family to help her with the baby. She states in addition to herself, four other people live in the home. MOB, FOB, FOB's mom and dad. Mother in law Nicolette Ying will help with the and provide transportation to appointments. They will also transport MOB and baby to appointments. MOB states this is her third child. has 2 other children from a previous relationship and they live with their dad and his parents. Denies smokers, drug users, or etoh use in the home. has several dogs and cats but will not leave baby unattended with pest. MOB declined information on parenting classes and breast feeding information. Denies any discharge needs at this time. CM will call Romel Diggs regarding Medicaid for baby. CM will continue to follow and assist as needed with dc planning/needs. Standard Machine Stitcher: Kerri FRANCIS export: 03/27/19 2:05 p Patient Name: KYLE YING Page [id number] at 0735 All edits/amendments must be made on the electronic document DICTATION DATE: 03/31/1936 HORSEBACK EXCAVATOR: ZONIA 03/31/1936 RPT#: [id number] DC DATE:03/28/19 STATUS: DIS IN [facility] [address] [place] [address] END OF REPORT
== END 2019-03-28 16:26 | disposition home or self-care (01) | DRG 785 ==
LOC: D.LD 00:14
PROVIDERS: ADMIT Obstetrics & Gynecology; ATTEND Obstetrics & Gynecology
PROC: 10D00Z1 Extraction of Products of Conception, Low, Open Approach (ICD-10-PCS; principal; 2019-03-26 09:30)
PROC: 0UB70ZZ Excision of Bilateral Fallopian Tubes, Open Approach (ICD-10-PCS; 2019-03-26 09:30)
DX: O24.429 Gestational diabetes mellitus in childbirth, unspecified control (principal); Z3A.38 38 weeks gestation of pregnancy; Z37.0 Single live birth; Z30.2 Encounter for sterilization; Z30.09 Encounter for other general counseling and advice on contraception